=== PATIENT | female | born 1980 | race Caucasian/White ===

== ENCOUNTER 2019-12-28 19:09 | Emergency (ER) | payer SELFPAY ==
[~2019-12-28] VITALS: Ht 162 cm; Wt 68.0 kg
[~2019-12-28 19:09] MED LIST: ACET1TAB43 PO; FERR325T18 PO; IBP600T1 PO; KETO10TA PO; PREN1TAB39 PO; SULF1TAB35 PO
--- OUTSIDE RECORDS SUMMARY | 2019-12-28 19:15 | XMS REPORT ---
Author Author Lyudmila NAJERA Organization [facility] Address [address] [place] [address] Care Team Providers Care Social Security Benefits Interviewer Name Role Phone TOMMIE NAJERA Unavailable PROBLEMS Type Condition ICD9-CM Code [id number] Code Onset Dates Condition S tatus SNOMED Code Problem Mood disorder F39 Active 574023 05 Problem Methamphetamine abuse F15.10 Active 403112194 Problem Primary insomnia F51.01 Active 397 2003 ALLERGIES No Known Allergies ENCOUNTERS Encounter Location Date Diagnosis [facility] [address] [facility] [id number] [place] [address] Oct, [address] [id number] Oct, Mood disorder F39 ; Other specified bacterial agents as the cause of diseases classified elsewhere B96.89 and Acute vaginitis N76.0 [facility] [address] [facility] [id number] [address] [place] [address] Mar, Dysuria R30.0 ; High risk he terosexual behavior Z72.51 ; Methamphetamine abuse F15.10 ; Urinary tract infection, site not specified N39.0 ; Hematuria, unspecified R31.9 ; Other specified bacterial agents as the cause of diseases classified elsewhere B96.89 and Acute vaginitis N76.[address] [id number] 57 Feb, Other specified bacterial agents as the cause of diseases classified elsewhere B96.89 ; Acute vaginitis N76.0 and Mood disorder F39 [address] [id number] 57 Dec, Abdominal pain, lower R10.[address] [id number] 57 Nov, Abdominal pain, lower R10.30 and Mood disorder F39 [address] [id number] 57 Aug, Primary insomnia F51.01 ; Left lower quadrant pain R10.32 and Right lower quadrant pain R10.31 [facility] [address] [place] [id number] [address] [place] [address] Aug, [facility] [address] [address] Jun, Vaginal discharge N89.8 ; Screening for STDs (sexually transmitted diseases) Z11.3 and Well woman exam with routine gynecological exam Z01.419 [facility] [address] [place], [place] [id number] 57 Jun, [facility] [place] [address] [address] Dec, Screening for head lice Z11. 8 [facility] [place] [address] [address] Jul, Screening for head lice Z11. 8 [place] [address] [address] Jun, Screening for head lice Z11.8 [place] [address] [address] Apr, [place] [address] [address] Apr, [place] [address] [address] Apr, Head lice B85.0 [facility] [place] [address] [place] [id number] [address] [place] [address] Jun, Acute suppurative otitis med ia of both ears with spontaneous rupture of tympanic membranes, recurrence not specified H66.013 [place] [address] [address] Jun, [place] [address] [address] Jun, Vaginal pain R10.2 [place] [address] [place] [address] Jun, [facility] [address] [place] [id number] [place] [phone] Jun, [facility] [address] [id number] [place] [address] Jun, Vaginal discharge N89.8 ; Dysuria R30.0 ; Vaginal irritation N89.8 ; Lower abdominal pain R10.30 ; Unprotected sexual intercourse Z72.51 and Bilateral low back pain without sciatica M54.5 [place] [address] [place] [id number] [place] [phone] Dec, IMMUNIZATIONS No Known Immunizations SOCIAL HISTORY Never Assessed REASON FOR VISIT HALFWAY PLAN OF CARE VITAL SIGNS Height 64 in 2018-12-10 Weight 138 lbs 2018-12-10 Heart Rate 94 bpm 2018-12-10 Respiratory Rate 18 2018-12-10 BMI 23.69 kg/m2 2018-12-10 Blood pressure systolic 112 mmHg 2018-12-10 Blood pressure diastolic 88 mmHg 2018-12-10 MEDICATIONS Medication Instructions Dosage Frequency Start Date End Date Duration S tatus Cyclobenzaprine HCl 10 MG Orally BID, PRN 1 tablet as needed Nov, Active Trazodone HCl 100 MG Orally Once a day 1 tablet at bedtime 24h 2 Nov, 30 day(s) Active Sklice 0.5 % as directed Nov, Ac tive Neurontin 800 MG Orally 3 times a day 1 tablet 8h Nov, 30 day(s) Active RESULTS No Results PROCEDURES No Known procedures INSTRUCTIONS MEDICATIONS ADMINISTERED No Known Medications MEDICAL (GENERAL) HISTORY Type Description Date Medical History hypertension Surgical History hernia repair Hospitalization History Patient had passed out in he r car and was admitted to the hospital 05/27/2018
--- OUTSIDE RECORDS SUMMARY | 2019-12-28 19:15 | XMS REPORT ---
Author Author [employer]. Organization [facility] Address [address] [address] Care Team Providers Care Putty Mixer And Applier Name Role Phone PIPPA ELLISON Unavailable Unavailable MAGO RYAN Unavailable Unavailable CIARRA HARRY Unavailable Unavailable LEVY SCOTT Unavailable DOMINIQUE CAESAR Unavailable LEVY SCOTT Unavailable PCP, NONE Unavailable Unavailable TOMMIE NAJERA Unavailable Allergies Normalized Allergy Reported Date of Reaction(s) Care Provider Facility Allergy Type classification allergen Allergy Onset MA (2 Unclassified NKANo Known 06-27-2006 - no information [place] ABDULKADIR HELM Not Available sources.) Allergies , DO (80955) Medications Medication Ingredient Drug Dose Dates Status Sig Sig Care Class(es) (Normalized) (Original) Provid er cyclobenzap cyclobenzap Muscle 10 mg 12-11-19 Active take 1 Cyc lobenzapr no rine rine Relaxant 19 tablet by ine HCl 10 name hydrochlori Translation mouth twice MG Orally (no de 10 mg s: [ daily as BID, PRN 1 phone) oral tablet Cyclobenzap needed tablet as (1 source.) rine HCl 10 needed 26 MG] Nov, 2018 Active gabapentin gabapentin Anti-epilep 800 mg 12-11-19 Active take 1 Neurontin no 800 mg oral Translation tic Agent 19 tablet by 800 MG name tablet (1 s: [ mouth three Orally 3 (no source.) Neurontin times daily times a day phone) 800 MG] 1 tablet 8h Nov, 30 day(s) Active ivermectin ivermectin Antiparasit 5 12-11-19 Active no Sklice 0.5 % no 5 mg/ml Translation ic, mg/mL 19 information as directed name topical s: [ Sklice Pediculicid Nov, (no lotion (2 0.5 %] e Active phone) sources.) 5 mg/mL 04-23-2017 no no Sklice no name information inform 0.5 % (no ation External phone) ly one time apply to dry hair combing through well. allow to leave on for 10 minutes then wash off. Apr, 1 dose Not-Taki ng traZODone traZODone Serotonin 100 mg 12-11-19 Active take 1 Traz odone no hydrochlori Translation Reuptake 19 tablet by HCl 100 MG name de 100 mg s: [ Inhibitor mouth once Orally Once (no oral tablet Trazodone daily at a day 1 phone) (1 source.) HCl 100 MG] bedtime tablet at bedtime 24h Nov, 30 day(s) Active Problems Active Problems Problem Normalized Date of Normalized Normalized Provider Fac ility Classification Problem(s) Problem Problem Problem Sta tus Onset/Resoluti Duration on Inflammatory Acute Episodic Active TOMMIE REINALDO Berg ty diseases of vaginitis [address] [facility] female pelvic Translations: of [place] organs (3 [ - Acute [place] ([address]) sources.) vaginitis N76.0] Complication Displacement Episodic Active WAYNE SALEH , N ot Available of device; of DO (50799) implant or intrauterine graft (4 contraceptive sources.) device, initial encounter Diseases of Elevated white Chronic Active TOMMIE HELM Not Available white blood blood cell , DO (50816) cells (7 count, sources.) unspecified Immunizations Encounter for Episodic Active LEVY farr and screening screening for SCOTT [id number] [place] [address] for infectious other of [place] disease (15 infectious and [place] ([address]) sources.) parasitic diseases Translations: [ - Screening for head lice Z11.8, - Screening for STDs (sexually transmitted diseases) Z11.3] Essential Essential Chronic Active WAYNE SALEH , Not Cecilia ilable hypertension (primary) DO (50046) (4 sources.) hypertension Menstrual Excessive and Chronic Active WAYNE SALEH , Not Available disorders (4 frequent DO (43638) sources.) menstruation with regular cycle Fluid and Hypokalemia Episodic Active WAYNE SALEH , Not A vailable electrolyte DO (90124) disorders (4 sources.) Other Hypomagnesemia Chronic Active WAYNE SALEH , No t Available nutritional; DO (52468) endocrine; and metabolic disorders (4 sources.) Female Infertility, Chronic Active no name [facility] Via infertility (2 female, of [place] sources.) unspecified Hospital - origin [place] ([address]) Deficiency and Iron Chronic Active WAYNE SALEH , Not Available other anemia deficiency DO (19010) (4 sources.) anemia secondary to blood loss (chronic) Substance-rela Methamphetamin Chronic Active [facility] miguel disorders e abuse [address] [place] [address] (2 sources.) Translations: of [facility] [ [place] ([address]) Methamphetamin e abuse, - Methamphetamin e abuse F15.10] Mood disorders Mood disorder [facility] Active [facility] (4 sources.) Translations: [address] [place] [address] [ Mood of [facility] disorder, - [place] ([address]) Mood disorder F39] Substance-rela Nicotine Chronic Active [facility] Not Available miguel disorders dependence, , DO (52995) (10 sources.) cigarettes, uncomplicated Translations: [ SEDATIVE, HYPNOTIC OR ANXIOLYTIC ABUSE, , OTHER STIMULANT ABUSE, UNCOMPLICATED, OPIOID ABUSE, UNCOMPLICATED] Other Other Chronic Active WAYNE SALEH , Not Avai lable nutritional; disorders of (36635) endocrine; and phosphorus metabolic metabolism disorders (4 sources.) Malaise and Other fatigue Episodic Active WAYNE SALEH N ot Available fatigue (4 DO (02314) sources.) Bacterial Other Episodic Active [facility] infection; specified [address] [place] [address] unspecified bacterial of [facility] (3 agents as the [place] ([address]) sources.) cause of diseases classified elsewhere Translations: [ - Other specified bacterial agents as the cause of diseases classified elsewhere B96.89] Other Pediculosis Episodic Active [facility] infections (4 due to SCOTT [address] [place] [address] Center sources.) Pediculus of [facility] humanus [place] ([address]) capitis Translations: [ - Head lice B85.0] Phlebitis; Phlebitis and Episodic Active WAYNE SALEH No t Available thrombophlebit thrombophlebit DO (96272) is and is of other thromboembolis sites m (4 sources.) Contraceptive Presence of Episodic Active no name [facility] Vi a and intrauterine [place] procreative contraceptive Hospital - management (2 device [place] sources.) ([address]) Miscellaneous Primary Chronic Active [facility] ity mental health insomnia [address] [place] [address] Center disorders (2 Translations: of [facility] sources.) [ Primary [place] ([address]) insomnia, - Primary insomnia F51.01] Syncope (4 Syncope and Episodic Active WAYNE SALEH , Not Available sources.) collapse DO (12378) Urinary tract Urinary tract Episodic Active TOMMIE HELM Not Available infections (8 infection, , DO (18425) sources.) site not specified Translations: [ - Urinary tract infection, site not specified N39.0] Past or Other Problems Problem Normalized Date of Normalized Normalized Provider Fac ility Classification Problem(s) Problem Problem Problem Sta tus Onset/Resoluti Duration on Poisoning by Poisoning by no information no information WAYNE Iqra BROWNER , Not Available psychotropic amphetamines, [place] ([address]) agents (4 accidental sources.) (unintentional ), initial encounter Translations: [ POISONING BY BENZODIAZEPINE S, ACCIDENTAL] Poisoning by Poisoning by no information no information WAYNE Iqra ARNER , Not Available other other opioids, DO (61247) medications accidental and drugs (3 (unintentional sources.) ), initial encounter Procedures Procedure Normalized Procedure Procedure Result Performer Facility Date 07-11-2018 Cul bact xcpt urine no information no name (no phon e) [facility] blood/stool aerobic [facility] ([id number]) 07-11-2018 Handlg&/or convey of no information no name (no leonardo ne) [facility] spec for tr office to [facility] ([address]) 07-11-2018 Iaadiadoo trichomonas no information no name (no ph one) [facility] vaginalis [facility] (76010) 07-11-2018 Infectious agent no information no name (no phone) [facility] enzymatic actv oth/thn [facility] virus [place] ([address]) 07-11-2018 No Charge no information no name (no phone) Comm [facility] ([address]474) Immunizations The data below is from unstructured sources No Known Immunizations No Known Immunizations No Known Immunizations No Known Immunizations No Known Immunizations No Known Immunizations No Known Immunizations Results Test Name Value Interpretation Reference Range Date Time Fa cility (Normalized) (Normalized) (Medline Reference) No panel information on 2019-04-14 Bacteria SEE NOTE (no code) [facility] Nom (Genital [facility] specimen) (39148) Bacteria SEE NOTE (no code) [facility] identified [facility] Nom (U) [facility] (87331) BLO 06/16/2019~cloud (no code) [facility] y~dark [facility]~present~n [facility] egative~1+~1+~>= (45211) 1.030~3+ Exp date 02/2020 (no code) [facility] (22753) Exp date 11/2019 (no code) [facility] (70830) Exp date +~09/16/2020 (no code) [facility] (92473) PAXTON no information (no code) [facility] (79462) Lot # [id number] (no code) [facility] ([id number]) Lot # [id number] (no code) [facility] (43125) Lot # [id number] (no code) [facility] (95402) Lot # [id number] (no code) [facility] (25465) pH (Bld) 5.5 [pH] (no code) 7.38 - 7.42 [pH] Communit y [facility] (14229) Protein (U) 1+ (no code) [facility] [Mass/Vol] [facility] (24472) RESULTS no information (no code) [facility] (38176) RESULTS no information (no code) [facility] (64423) URO 0.2 (no code) [facility] (13915) Vital Signs Vital Sign Value Interpretation Reference Date Time Care Prov ider Facility (Normalized) (Normalized) Range BMI (Body Mass 23.72 kg/m2 (no code) 15 - 25 kg/m2 08-23-2018 TUCKER PRO ARUNA Community Index) 16:00-0500 [place] [address] [facility] (98492) BMI (Body Mass 22.29 kg/m2 (no code) 15 - 25 kg/m2 07-11-2018 TR TOM DOMINIQUE Community Index) 11:200400 [address] [facility] (47503) BMI (Body Mass 23.14 kg/m2 (no code) 15 - 25 kg/m2 01-01-2018 TUCKER INOCENCIA VALDOVINOS Community Index) 13:50-[address] ([address]) Body height 162.56 cm (no code) cm 12-10-2018 [facility] 10:[id number] [place] [address] ([address]) Body mass 23.69 kg/m2 (no code) 15 - 25 kg/m2 12-10-2018 [facility] index (BMI) 10: 09694 [facility] [Ratio] [facility] (57193) Body 97.8 [degF] (no code) 97.8 - 99.0 08-23-2018 [facility] Temperature [degF] 16:00-[address] ([address]) Body 97.7 [degF] (no code) 97.8 - 99.0 07-11-2018 [facility] Community Temperature [degF] 11:200400 [address] [place] [address] (55827) Body 98.9 [degF] (no code) 97.8 - 99.0 01-01-2018 [facility] Temperature [degF] 13:50-[address] ([address]) Body weight 62.6 kg (no code) kg 12-10-2018 [facility] 10:200400 [id number] [place] [address] ([address]) Height 162.56 cm (no code) cm 08-23-2018 HERMELINDO Comm unity 16:00-[address] ([address]) Height 162.56 cm (no code) cm 07-11-2018 [facility] mmunity 11:200400 [id number] [place] [address] ([address]) Height 162.56 cm (no code) cm 01-01-2018 HERMELINDO Comm unity 13:50-[address] ([address]) Weight 62.69 kg (no code) kg 08-23-2018 LEVY VALDOVINOS Commu nity 16:00-[address] ([address]) Weight 58.92 kg (no code) kg 07-11-2018 CAESAR FOX Com munity 11:20-[address] [place] [address] (16[address]) Weight 61.15 kg (no code) kg 01-01-2018 LEVY VALDOVINOS Commu nity 13:50-[address] ([address]) Interventions No Information Plan of Treatment Normalized Care Care Detail Care Activity Date Care Provider F acility Activity (SD) Same Day [facility] 08-26-2018 LEVY VALDOVINOS [address] ([address]) no information no information no information CAESAR [address] ([address]) Goals No Information Social History Normalized Code Original Code Date Value no information no information no information Unknown if ever smoked Functional Status No Information Mental Status No Information Encounters Encounter Normalized Encounter Encounter Diagnosis Care Provi marek Organization Date Type 06-25-2018 (ACUTE) Acute Visit no information TOMMIE NAJERA (no [facility] - phone) Corrections (no leonardo ne) 06-25-2018 - 06-25-2018 07-01-2015 (ACUTE) Acute Visit Other specified MAGO RYAN ( no [facility] - noninflammatory phone) (no phone) 07-01-2015 disorders of vagina - 07-01-2015 06-25-2017 (SD) Same Day Encounter for PIPPA ELLISON (no [facility] - screening for other phone) PIPPA pittmanCARELuis Manuel (n o phone) 06-25-2017 infectious and (no phone) PIPPA - parasitic diseases zzCAREY (no phone) 06-25-2017 04-23-2017 (SD) Same Day Pediculosis due to PIPPAIAIN DHILLONY (no [facility] - Pediculus humanus phone) PIPPA buddyzCAREY (no phone) 04-23-2017 capitis (no phone) PIPPA - zzCAREY (no phone) 04-23-2017 01-01-2018 (WALK-IN) Walk-In Care Encounter for LEVY ESTEBAN (no [facility] - screening for other phone) CARE (no p sydney) 01-01-2018 infectious and - parasitic diseases 01-01-2018 07-26-2017 (WALK-IN) Walk-In Care Encounter for ELDA Gonzales (no [facility] - screening for other phone) ELDA CARE (no p sydney) 07-26-2017 infectious and ZZCOLLINS (no phone ) - parasitic diseases ELDA zzCOLLINS ( no 07-26-2017 phone) 07-01-2016 (WALK-IN) Walk-In Care Acute suppurative PIPPA NENITA CINDY (no [facility] - otitis media with phone) PIPPA zzCAREY CARE (no phone) 07-01-2016 spontaneous rupture of (no phone) [facility] - ear drum, bilateral zzCAREY (no phone) 07-01-2016 07-05-2015 () [facility] Pelvic and perineal CIARRA SMALLS (no [facility] - Visit pain phone) (no phone) 07-05-2015 - 07-05-2015 07-11-2018 Annual wellness visit Other specified CAESAR DOMINIQUE ( no phone) [facility] noninflammatory (no phone) disorders of vagina 04-14-2019 [facility] Dysuria MONI ESTRADA (no [facility] CARE phone) CARE (no phone) 05-11-2017 [facility] no information PIPPA ELLISON (no [facility] - phone) PIPPA zzCAREY (no phone) 05-11-2017 (no phone) PIPPA - zzCAREY (no phone) 05-11-2017 05-08-2017 [facility] no information PIPPA ELLISON (no [facility] - phone) PIPPA zzCAREY (no phone) 05-08-2017 (no phone) PIPPA - zzCAREY (no phone) 05-08-2017 07-06-2015 [facility] no information MAGO SHELBY (no [facility] - phone) (no phone) 07-06-2015 - 07-06-2015 07-05-2015 [facility] no information MAGO SHELBY (no [facility] - phone) (no phone) 07-05-2015 - 07-05-2015 07-01-2015 [facility] no information MAGO SHELBY (no [facility] - phone) (no phone) 07-01-2015 - 07-01-2015 12-31-2008 [facility] no information Doctor Migrati on (no [facility] - phone) (no phone) 12-31-2008 - 12-31-2008 11-04-2019 [facility] Unspecified mood TOMMIE NAJERA (no [facility] Corrections [affective] disorder phone) Correctio ns (no phone) 03-04-2019 [facility] Other specified TOMMIE NAJERA (no [facility] Corrections bacterial agents as phone) Correction s (no phone) the cause of diseases classified elsewhere 12-17-2018 [facility] Lower abdominal pain, TOMMIE NAJERA (no [facility] Corrections unspecified phone) Corrections (no phone) 12-10-2018 [facility] Lower abdominal pain, T[facility]E NAJERA ([facility] phone) Corrections (no phone) 09-03-2018 [facility] Primary insomnia TOMMIE NAJERA (no [facility] Corrections phone) Corrections (no leonardo ne) 05-02-2018 Emergency department no information no name (no leonardo ne) no organization name patient visit (no phone) 08-21-2016 Emergency department no information no name (no leonardo ne) no organization name - patient visit (no phone) 08-22-2016 05-02-2018 Evaluation and no information no name (no phone) n o organization name - management of (no phone) 05-03-2018 inpatient 08-23-2018 Nursing evaluation of no information LEVY ESTEBAN (no [facility] - patient and report phone) CARE (no p sydney) 08-23-2018 - 08-23-2018 05-02-2018 Patient encounter no information no name (no phone) no organization name - (no phone) 05-03-2018 01-01-2018 Patient encounter no information no name (no phone) no organization name (no phone) 06-09-2013 Patient encounter no information no name (no phone) no organization name (no phone) 04-14-2019 Patient encounter no information no name (no phone) no organization name procedure (no phone) 04-14-2019 Patient encounter no information no name (no phone) no organization name procedure (no phone) 12-17-2018 Patient encounter no information no name (no phone) no organization name procedure (no phone) 12-10-2018 Patient encounter no information no name (no phone) no organization name procedure (no phone) 09-03-2018 Patient encounter no information no name (no phone) no organization name procedure (no phone) 07-11-2018 Patient encounter Other specified CAESARCOLLEEN FOX (no p sydney) [facility] - procedure noninflammatory (no phone) 07-11-2018 disorders of vagina - 07-11-2018 11-13-2019 Telephone encounter no information TOMMIE NAJERA (no [facility] phone) (no phone) no information Encounter for no name (no phone) no organiza tion name gynecological (no phone) examination (general) (routine) without abnormal findings Medical Equipment No Information Payers No Information History general Narrative - Reported Note Type Note Facility History general Narrative - Reported Type Medical hypertension History Surgical hernia repair History Hospitaliz Patient had passed out in her car and w as admitted to the hospital 05/27/2018 [facility] ([id number]) Summary Purpose eClinicalWorks SubmissioneClinicalWorks SubmissioneClinicalWorks SubmissioneClinicalWorks SubmissioneClinicalWorks SubmissioneClinicalWorks Submission Additional Source Comments This clinical document has been generated using [employer] software that has been certified by the Office of the National Coordinator for Health Information Technology (ONC 15.99.04.3023.Diam.31.00.0.647915) and the National Committee for Warehouse Specialist (NCQA, as an eMeasure certified technology). FOR RECORDS PERTAINING TO PATIENTS WHO ARE OR HAVE BEEN ENROLLED IN A CHEMICAL D EPENDENCY/SUBSTANCE ABUSE PROGRAM, SOME INFORMATION MAY BE OMITTED. This clinica l summary was aggregated from multiple sources. Caution should be exercised in using it in the provision of clinical care. This summary normalizes information from multiple sources, and as a consequence, information in this document may ma terially change the coding, format and clinical context of patient data. In byron tion, data may be omitted in some cases. CLINICAL DECISIONS SHOULD BE BASED ON T HE PRIMARY CLINICAL RECORDS. [employer]. provides no warranty or guara ntee of the accuracy or completeness of information in this document.The followi information is based on time limited clinical information UNRECOGNIZED CONTENT PROVIDED BELOW FOR UNRECOGNIZED SECTION MEDICAL (GENERAL) HISTORY Type Description Date Medical History hypertension Surgical History hernia repair Type Description Date Medical History hypertension Surgical History hernia repair Hospitalization History Patient had passed out in her car and was admitted to the hospital 05/27/2018 UNRECOGNIZED CONTENT PROVIDED BELOW FOR UNRECOGNIZED SECTION REASON FOR VISIT Annual physical (female), patient has had a copper 5 year IUD placed and it has been in for 7 years, Dr. Conde has said that it is lodged in her uterus and he w anted to take it out a while back but she decided that she didn't want it taken out here in office so she left it in. It is now causing bleeding and she has a fowl odor K Fraker MAhead lice for the past year. reports she has bugs in her head crawling around et has been seen for this in the past...et always gets referred to mental health. offered mental health here if thats what the pt is looking for. pt refused. no co pay. brijesh, advised pt to try OTC head lice shampoo et make an appt with PCP since this has been going on for a year. , appt will be made for pt. pt agrees with SASKIA
--- OUTSIDE RECORDS SUMMARY | 2019-12-28 19:15 | XMS REPORT ---
Author Author Lyudmila FOX Organization [facility] Address [address] [place] [address] Care Team Providers Care Parker Name Role Phone CAESAR FOX Unavailable PROBLEMS Unknown Problems ALLERGIES No Known Allergies ENCOUNTERS Encounter Location Date Diagnosis [facility] [address] [facility] [id number] [address] [place] [phone] Jun, Vaginal discharge N89.8 ; Sc reening for STDs (sexually transmitted diseases) Z11.3 and Well woman exam with routine gynecological exam Z01.419 [facility] [address] [place], [place] [id number] 57 Jun, [facility] [address] [facility] [id number] [address] [place] [phone] Dec, Screening for head lice Z11. 8 [facility] WALK IN [facility] [address] [facility] [id number] [address] [place] [phone] Jul, Screening for head lice Z11. 8 [facility] [address] [facility] [id number] [address] [place] [phone] Jun, Screening for head lice Z11. 8 [facility] [address] [facility] [id number] [address] [place] [phone] Apr, [facility] [address] [id number] [address] [place] [phone] Apr, [facility] [address] [facility] [id number] [address] [place] [phone] Apr, Head lice B85.0 [facility] [address] [facility] [id number] [address] [place] [phone] Jun, Acute suppurative otitis med ia of both ears with spontaneous rupture of tympanic membranes, recurrence not specified H66.013 [facility] [address] [facility] [id number] [address] [place] [phone] Jun, [facility] [address] [facility] [id number] [address] [place] [phone] Jun, Vaginal pain R10.2 [place] [address] [place] [id number] [address] [place] [phone] Jun, [place] [address] [facility] [id number] [address] [place] [phone] Jun, [place] [address] [facility] [id number] [address] [place] [phone] Jun, Vaginal discharge N89.8 ; Dy suria R30.0 ; Vaginal irritation N89.8 ; Lower abdominal pain R10.30 ; Unprotected sexual intercourse Z72.51 and Bilateral low back pain without sciatica M54.5 [place] [address] [place] [id number] [address] [place] [phone] Dec, IMMUNIZATIONS No Known Immunizations SOCIAL HISTORY Never Assessed REASON FOR VISIT Annual physical (female), patient [...] now causing bleeding and she has a f owl odor Solo Mckeon MA PLAN OF CARE Activity Details Follow Up 2 Weeks if not better Reason :vaginal discharge Pending Test GC/CHLAM PROBE (STATE) Pending Test TRICHOMONAS (IN HOUSE) Pending Test BACTERIAL VAGINOSIS (IN HOUS E) Pending Test PAP AND HPV Pending Test CULTURE, GENITAL VITAL SIGNS Height 64 in 2018-07-11 Weight 129.9 lbs 2018-07-11 Temperature 97.7 degrees Fahrenheit 2018-07-11 Heart Rate 92 bpm 2018-07-11 Respiratory Rate 22 2018-07-11 BMI 22.29 kg/m2 2018-07-11 Blood pressure systolic 138 mmHg 2018-07-11 Blood pressure diastolic 78 mmHg 2018-07-11 MEDICATIONS Medication Instructions Dosage Frequency Start Date End Date Duration S tonia Flagyl 500 mg Orally one time 4 tablets Jun, 26 Jun, 201 8 1 dose Active Lisinopril 20 MG Active RESULTS No Results PROCEDURES Procedure Date Ordered Result Body Site SPECIMEN HANDLING Jul 11, 2018 Bacterial Vaginosis In House Jul 11, 2018 TRICHOMONAS ASSAY W/OPTIC Jul 11, 2018 No Charge Jul 11, 2018 CULTURE, BACTERIA, OTHER Jul 11, 2018 INSTRUCTIONS MEDICATIONS ADMINISTERED No Known Medications MEDICAL (GENERAL) HISTORY Type Description Date Medical History hypertension Surgical History hernia repair Hospitalization History Patient had passed out in he r car and was admitted to the hospital 05/27/2018
--- OUTSIDE RECORDS SUMMARY | 2019-12-28 19:15 | XMS REPORT ---
Author Author Lyudmila SCOTT Organization [facility] Address [address] [place] [address] Care Team Providers Care Crayon Sorting Machine Feeder Name Role Phone LEVY SCOTT Unavailable PROBLEMS Unknown Problems ALLERGIES No Information ENCOUNTERS Encounter Location Date Diagnosis [facility] [address] [facility] [id number] [address] [place] [phone] Aug, [facility] [address] [facility] [id number] [address] [place] [phone] Aug, [facility] [address] [facility] [id number] [address] [place] [phone] Jun, Vaginal discharge N89.8 ; Sc reening for STDs (sexually transmitted diseases) Z11.3 and Well woman exam with routine gynecological exam Z01.419 [facility] [address] [place], [place] [id number] 57 Jun, [facility] [address] [facility] [id number] [address] [place] [phone] Dec, Screening for head lice Z11. 8 [facility] [address] [id number] [address] [place] [phone] Jul, Screening for head lice Z11. 8 [facility] [address] [id number] [address] [place] [phone] Jun, Screening for head lice Z11. 8 [facility] [address] [id number] [address] [place] [phone] Apr, [facility] [address] [facility] [id number] [address] [place] [phone] Apr, [facility] [address] Apr, Head lice B85.0 [facility] [address] Jun, Acute suppurative otitis med ia of both ears with spontaneous rupture of tympanic membranes, recurrence not specified H66.013 [facility] [address] Jun, [facility] [address] Jun, Vaginal pain R10.2 [place] [address] Jun, [facility] [address] Jun, [place] [address] [address] Jun, Vaginal discharge N89.8 ; Dy suria R30.0 ; Vaginal irritation N89.8 ; Lower abdominal pain R10.30 ; Unprotected sexual intercourse Z72.51 and Bilateral low back pain without sciatica M54.5 [facility] [address] Dec, IMMUNIZATIONS No Known Immunizations SOCIAL HISTORY Never Assessed REASON FOR VISIT head lice for the past year. reports she has bugs in her head crawling around et has been seen for this in the past...et always gets referred to mental health. offered mental health here if thats what the pt is looking for. pt refused. no c o pay. brijesh, advised pt to try OTC head lice shampoo et make an appt with PCP since this has been going on for a year. , appt will be made for pt. pt agre es with POC PLAN OF CARE VITAL SIGNS Height 64 in 2018-08-23 Weight 138.2 lbs 2018-08-23 Temperature 97.8 degrees Fahrenheit 2018-08-23 Heart Rate 90 bpm 2018-08-23 Respiratory Rate 20 2018-08-23 BMI 23.72 kg/m2 2018-08-23 Blood pressure systolic 134 mmHg 2018-08-23 Blood pressure diastolic 80 mmHg 2018-08-23 MEDICATIONS Medication Instructions Dosage Frequency Start Date End Date Duration S tonia Lisinopril 20 MG Active RESULTS No Results PROCEDURES No Known procedures INSTRUCTIONS MEDICATIONS ADMINISTERED No Known Medications MEDICAL (GENERAL) HISTORY Type Description Date Medical History hypertension Surgical History hernia repair Hospitalization History Patient had passed out in he r car and was admitted to the hospital 05/27/2018
--- NOTE | 2019-12-28 19:20 | ED Integumentary General ---
General Stated Complaint: PT SUSPECTS HEAD LICE Source: patient Exam Limitations: no limitations History of Present Illness Date Seen by Provider: Dec 28, 2019 Time Seen by Provider: 19:20 Initial Comments To ER with reports of concern for head lice that she's had for 3 years, no one believes her. States she was diagnosed with lice at the [facility] as Timing/Duration: other (3 years) Severity: mild Possible Cause: no cause identified Associated Symptoms: denies symptoms Allergies and Home Medications Allergies Coded Allergies: NKANo Known Allergies (Verified Allergy, Unknown, 06/27/06) Home Medications Ferrous Sulfate 325 Mg Tablet, 325 MG PO DAILY Prescribed by: WAYNE SALEH on 05/03/18 1113 Patient Home Medication List Home Medication List Reviewed: Yes Review of Systems Review of Systems Constitutional: see HPI EENTM: see HPI Respiratory: no symptoms reported Cardiovascular: no symptoms reported Genitourinary: no symptoms reported Musculoskeletal: no symptoms reported Skin: no symptoms reported Psychiatric/Neurological: No Symptoms Reported Endocrine: No Symptoms Reported Hematologic/Lymphatic: No Symptoms Reported Past Zkpqtns-Jdinyv-Mwkjlo Hx Patient Social History Drug of Choice: METH, OPIATES, BENZOS Type Used: Cigarettes 2nd Hand Smoke Exposure: Yes Recent Foreign Travel: No Contact w/Someone Who Travel: No Recent Hopitalizations: No Seasonal Allergies Seasonal Allergies: No Past Medical History Surgeries: Yes (HERNIA) Respiratory: No Cardiac: Yes Hypertension Neurological: No Reproductive Disorders: No Female Reproductive Disorders: Menstrual Problems Genitourinary: No Gastrointestinal: No Musculoskeletal: No Endocrine: No HEENT: No Cancer: No Psychosocial: No Integumentary: No Blood Disorders: No Adverse Reaction/Blood Tranf: No Family Medical History FH: throat cancer 19 FATHER Hypertension 19 FATHER Hypertension Physical Exam Vital Signs Vital Signs - First Documented 12/28/19 19:15 Temp 37.0 Pulse 113 Resp 20 B/P (MAP) 142/127 (132) Pulse Ox 100 Capillary Refill : General Appearance: WD/WN, no apparent distress, other (very short buzzed hair, no head lice present, she begins crying when I tell her this, she would like me to take a scraping of her scalp to test for head lice.) HEENT: PERRL/EOMI, normal ENT inspection Neck: non-tender, full range of motion Extremities: normal range of motion, non-tender Neurologic/Psychiatric: alert, oriented x 3 Skin: normal color, warm/dry Progress/Results/Core Measures Results/Orders Vital Signs/I&O 12/28/19 12/28/19 19:15 19:39 Temp 37.0 37.0 Pulse 113 113 Resp 20 20 B/P (MAP) 142/127 (132) 142/127 (132) Pulse Ox 100 100 Departure Impression Primary Impression: Delusions of parasitosis Disposition: HOME, SELF-CARE Condition: Stable Departure-Patient Inst. Decision time for Depature: 19:20 Referrals: JOSELYN ITPTON MD (PCP) Primary Care Physician Patient Instructions: NO INSTRUCTIONS GIVEN Add. Discharge Instructions: 1. Follow-up with your regular doctor. STACI SOLITARIO RESEARCH ANALYST Dec 28, 2019 19:20
[2019-12-28 19:39] VITALS: BP 142/127
== END 2019-12-28 19:39 | disposition home or self-care (01) ==
LOC: EDUNIT# 19:09 → ER 19:11
DX: F22 Delusional disorders (principal); Z77.22 Contact with and (suspected) exposure to environmental tobacco smoke (acute) (chronic); Z80.8 Family history of malignant neoplasm of other organs or systems; Z82.49 Family history of ischemic heart disease and other diseases of the circulatory system
CPT/HCPCS: 99281

== ENCOUNTER 2022-02-20 15:01 | Emergency (ER) | payer SELFPAY ==
[~2022-02-20] VITALS: Ht 165.1 cm; Wt 63.5 kg
[~2022-02-20 15:01] MED LIST changes: -SULF1TAB35 PO; +SULF1TAB38 PO
[2022-02-20 15:10] VITALS: BP 188/121
[2022-02-20] MEDS ORDERED: TETRACAINE 0.5% OPHTH SOLN 4 ML BTL (SINGLE DOSE ONLY) OP ONE (15:15)
[2022-02-20] MEDS ORDERED: FLUORESCEIN (FLUOR-I-STRIPS) 1 MG STRP OP ONE (15:15)
--- NOTE | 2022-02-20 15:27 | ED EENT ---
History of Present Illness General Stated Complaint: SOMTHING IN EYE Source: patient Exam Limitations: no limitations History of Present Illness Date Seen by Provider: Feb 20, 2022 Time Seen by Provider: 15:18 Initial Comments Patient is a 41-year-old female presents ED with right eye pain. Patient states she took a shower 1 hour ago. Believes that soap got her right eye. She attempted to irrigate her right eye and may have scratched her right eye. She had immediate pain with burning. She reports pain with opening and closing her eye and movement. She states she was taking a shower outside at the time. Denies of any visual loss, facial pain, vomiting, diarrhea. Patient denies contact wear. She is up-to-date on her tetanus. Allergies and Home Medications Allergies Coded Allergies: LAURENCEANo Known Allergies (Verified Allergy, Unknown, 06/27/06) Patient Home Medication List Home Medication List Reviewed: Yes Ferrous Sulfate (Ferrous Sulfate) 325 Mg Tablet, 325 MG PO DAILY Prescribed by: WAYNE SALEH on 05/03/18 1113 Ofloxacin (Ofloxacin) 0.3 % Drops, 2 DROPS OP Q6H Prescribed by: MARQUIS KILGORE on 02/20/22 1534 Review of Systems Review of Systems Constitutional: No chills, No diaphoresis, No malaise, No weakness Eyes: Denies Drainage, Denies Decreased Acuity; Foreign Body Sensation, Inflammation, Pain; Denies Previous Injury Ears: Denies Dizziness, Denies Pain Nose: denies clots, denies congestion, denies bloody discharge, denies clear discharge Mouth: denies clots, denies loose teeth Gastrointestinal: No RUQ, No abdominal pain, No diarrhea, No nausea, No vomiting Musculoskeletal: No back pain, No joint pain Skin: No change in color All Other Systems Reviewed Negative Unless Noted: Yes Past Osdlssq-Ffebdd-Kgympe Hx Seasonal Allergies Seasonal Allergies: No Past Medical History Surgeries: Yes (HERNIA) Respiratory: No Cardiac: Yes Hypertension Neurological: No Reproductive Disorders: No Female Reproductive Disorders: Menstrual Problems Genitourinary: No Gastrointestinal: No Musculoskeletal: No Endocrine: No HEENT: No Cancer: No Psychosocial: No Integumentary: No Blood Disorders: No Adverse Reaction/Blood Tranf: No Family Medical History FH: throat cancer 19 FATHER Hypertension 19 FATHER Hypertension Physical Exam Height, Weight, BMI Height: 5'5.00" Weight: 143lbs. 0.0oz. 64.769965nr; 25.00 BMI Method:Stated General Appearance: WD/WN, no apparent distress Eyes: right eye PERRL, right eye EOMI, right eye conjunctival inflammation, right eye lid inflammation, right eye other (Negative Reanna sign. Corneal abrasion. No obvious foreign body.) Ears: bilateral ear auricle normal, bilateral ear canal normal, bilateral ear TM normal Nose: normal inspection Mouth/Throat: normal mouth inspection, pharynx normal Neck: non-tender, full range of motion, supple, normal inspection Cardiovascular: regular rate, rhythm, no edema, no gallop, no JVD Respiratory: chest non-tender, lungs clear, normal breath sounds, no respiratory distress Gastrointestinal: normal bowel sounds, non tender, soft, no organomegaly Skin: normal color, warm/dry Progress/Results/Core Measures Results/Orders My Orders Orders - SARA MAHER Tetracaine 0.5% Ophth Magnolia Sdv (Tetracai (02/20/22 15:15) Fluorescein Strips ([id number]) (02/20/22 15:15) Medications Given in ED Current Medications Medications Dose Ordered Sig/Nicola Route Start Time Stop Time Status Last Admin Dose Admin Fluorescein Sodium ONCE ONCE OP 02/20/22 15:15 02/20/22 15:16 DC 02/20/22 15:20 1 MG Tetracaine HCl 1 OR 2 DROPS INTO AFFEC... ONCE ONCE OP 02/20/22 15:15 02/20/22 15:16 DC 02/20/22 15:20 1 ML Departure Communication (PCP) Patient appears to have a corneal abrasion with some uptake. Unsure if soap or some type of foreign body flew into her eye. Extensive irrigation. She is up-t o-date to her tetanus. Denies contact wear. Negative Reanna sign suggesting globe rupture. Extraocular movements intact. erythematous conjunctiva likely secondary to irritant. Patient was given tetracaine with improvement of pain. She states this was acute after she felt something in her eye. Visual acuity 20/30 right eye, 20/20 left eye 20/20. Recommend following up with [facility] in the next 2 to 3 days for reevaluation. If any worsening symptoms return back to ED. Impression Primary Impression: Corneal abrasion Disposition: HOME, SELF-CARE Condition: Stable Departure-Patient Inst. Referrals: JOSELYN TIPTON MD (PCP) Primary Care Physician Patient Instructions: Corneal Abrasion ED Scripts Ofloxacin (Ofloxacin) 0.3 % Drops 2 DROPS OP Q6H for 5 Days, #1 DROPS Prov: SARA MAHER 02/20/22 SARA MAHER Feb 20, 2022 15:27
[2022-02-20] MEDS ORDERED: OFLO5DRO3 OP (15:34)
== END 2022-02-20 15:59 | disposition home or self-care (01) ==
LOC: EDUNIT# 15:01 → ER 15:03
DX: S05.01XA Injury of conjunctiva and corneal abrasion without foreign body, right eye, initial encounter (principal); X58.XXXA Exposure to other specified factors, initial encounter
CPT/HCPCS: 99281